=== PATIENT | male | born 1975 | race African-American/Black ===

== ENCOUNTER 2021-02-05 08:50 | Emergency (ER) | payer OTHER ==
[~2021-02-05] VITALS: Ht 172.7 cm; Wt 104.3 kg
--- NOTE | 2021-02-05 09:03 | NUR ---
TO ER BED 4, C/O RT FOOT PAIN PS 7/10 S/P KICKING TV LAST NIGHT, AAO, BREATHING EVEN AND NON LABORED, AWAITING MD COLLINS
--- NOTE | 2021-02-05 09:04 | NUR ---
DR CALDERÓN AT BEDSIDE
[2021-02-05] MEDS ORDERED: IBUPROFEN 600 MG TABLET ONE (09:12)
[2021-02-05] MEDS ORDERED: HYDROCODONE/APAP 5/325MG TABLET ONE (09:12)
[2021-02-05] MEDS ORDERED: IBUPROFEN 600 MG TABLET PO ONE (09:30)
[2021-02-05] MEDS ORDERED: HYDROCODONE/APAP 5/325MG TABLET PO ONE (09:30)
--- NOTE | 2021-02-05 09:34 | NUR ---
[employer] AT BEDSIDE
--- NOTE | 2021-02-05 09:35 | NUR ---
DR CALDERÓN AT BEDSIDE
[2021-02-05] MEDS ORDERED: IBUP-1957 PO (09:55)
--- NOTE | 2021-02-05 10:24 | NUR ---
REFUSED TO SIGN DISCHARGE PAPER BEFORE HE LEFT
[2021-02-05 10:26] VITALS: BP 126/72
== END 2021-02-05 10:28 | disposition home or self-care (01) ==
LOC: ER 08:52
DX: S90.31XA Contusion of right foot, initial encounter (principal); F20.9 Schizophrenia, unspecified; Z98.890 Other specified postprocedural states; W22.8XXA Striking against or struck by other objects, initial encounter; Y93.89 Activity, other specified; Y92.89 Other specified places as the place of occurrence of the external cause; Y99.8 Other external cause status
CPT/HCPCS: 73630-TC